=== PATIENT | male | born 1985 | race Caucasian/White ===

== ENCOUNTER 2016-05-12 11:38 | Emergency (ER) | payer OTHER ==
[2016-05-12 11:56] VITALS: BP 144/85; PULSE 73; TEMP 97.9; BMI 32.8
[2016-05-12] MEDS ORDERED: KETOROLAC TROMETHAMINE 60 MG/2 ML VIAL IM ONE (13:05)
[2016-05-12] MEDS ORDERED: CYCLOBENZAPRINE HCL 10 MG TABLET (FP) PO ONE (13:05)
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
[2016-05-12] MEDS ORDERED: KETOROLAC TROMETHAMINE 60 MG/2 ML VIAL ONE (13:10)
[2016-05-12] MEDS ORDERED: CYCLOBENZAPRINE HCL 10 MG TABLET (FP) ONE (13:10)
== END 2016-05-12 13:53 | disposition home or self-care (01) ==
LOC: JERFT 11:38
PROC: 3E0233Z Introduction of Anti-inflammatory into Muscle, Percutaneous Approach (ICD-10-PCS; principal; 2016-05-12)
DX: M54.5 Low back pain (principal); X50.0XXA Overexertion from strenuous movement or load, initial encounter; X00.8XXA Other exposure to uncontrolled fire in building or structure, initial encounter; Y93.89 Activity, other specified; Y92.63 Factory as the place of occurrence of the external cause; Y99.0 Civilian activity done for income or pay
CPT/HCPCS: 99281-25

== ENCOUNTER 2018-02-27 22:37 | Emergency (ER) | payer OTHER ==
[2018-02-27 22:52] VITALS: BP 108/71; PULSE 62; TEMP 98.3; BMI 29.9
[2018-02-27] MEDS ORDERED: KETOROLAC TROMETHAMINE 30 MG/1 ML VIAL IM ONE (23:15)
[2018-02-27] MEDS ORDERED: METHOCARBAMOL 500 MG TABLET PO ONE (23:15)
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
[2018-02-27] MEDS ORDERED: KETOROLAC TROMETHAMINE 30 MG/1 ML VIAL ONE (23:34)
[2018-02-27] MEDS ORDERED: METHOCARBAMOL 500 MG TABLET ONE (23:34)
--- NOTE | 2018-02-28 00:41 | PDOC ---
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 Pain does not feel like his sciatica and does not radiate down his legs. Denies numbness/tingling/weakness of extremities, bowel/bladder incontinence, fever, sob, cp, abd pain, n/v, urinary complaints. Did not take anything for pain yet. States pain level is currently 10. 02/28/18 01:46 Past History - Past Medical History Allergies/Adverse Reactions: Allergies Allergy/AdvReac Type Severity Reaction Status Date / Time No Known Allergies Allergy Verified 02/27/18 23:21 Home Medications: Ambulatory Orders Bupropion HCl [Wellbutrin Xl -] 150 mg PO DAILY 06/17/15 Citalopram Hydrobromide [Celexa -] 10 mg PO DAILY 06/17/15 Cyclobenzaprine HCl [Flexeril] 10 mg PO TID #20 tablet 06/17/15 Naproxen [Naprosyn -] 500 mg PO BID PRN #14 tablet 05/12/16 Methocarbamol [Robaxin -] 500 mg PO TID PRN #21 tablet 02/28/18 COPD: No - Immunization History Immunization Up to Date: Yes - Suicide/Smoking/Psychosocial Hx Smoking History: Never smoked Have you smoked in the past 12 months: No Hx Alcohol Use: No Drug/Substance Use Hx: No Substance Use Type: None Review of Systems - Review of Systems Comments:: See HPI 02/28/18 01:48 *Physical Exam - Vital Signs Last Vital Signs Temp Pulse Resp BP Pulse Ox 98.3 F 62 18 108/71 100 02/27/18 22:50 02/27/18 22:50 02/27/18 22:50 02/27/18 22:50 02/27/18 22:50 - Physical Exam General Appearance: No: Apparent Distress Neck: positive: Supple. negative: Rigid Respiratory/Chest: positive: Lungs Clear, Normal Breath Sounds. negative: Respiratory Distress Cardiovascular: positive: Regular Rhythm, Regular Rate, S1, S2 Gastrointestinal/Abdominal: positive: Normal Bowel Sounds, Soft. negative: Tender, Distended, Guarding, Rebound, Tenderness Musculoskeletal: positive: Muscle Spasm (Along R lumbar paravertebral muscles), Vertebral Tenderness. negative: CVA Tenderness Neurologic: positive: watch engine operator II-XII NML intact, Fully Oriented, Alert, Normal Mood/ Affect, Motor Strength 5/5. 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 Patient with no focal deficits and no concerns for cauda equina. Patient given Toradol and Robaxin with improvement in pain. New rx: Robaxin Stable for discharge. 02/28/18 01:49 *DC/Admit/Observation/Transfer Diagnosis at time of Disposition: Low back strain - Discharge Dispostion Disposition: HOME Condition at time of disposition: Improved Decision to Admit order: No - Prescriptions Prescriptions: Methocarbamol [Robaxin -] 500 mg PO TID PRN #21 tablet PRN Reason: Muscle Spasms - Referrals - Patient Instructions Printed Discharge Instructions: DI for Low Back Pain Additional Instructions: Thank you for choosing [facility]. It was a pleasure taking care of you. You may take Motrin 600 mg every 4 hours by mouth as needed for mild to moderate pain. Take Motrin with food. Take Robaxin as needed for muscle spasms Recommend physical therapy if needed, warm compresses as well Return to the Emergency Department if your symptoms worsen or persist, you have fever, shortness of breath, chest pain, severe abdominal pain, vomiting, weakness of extremities (arms and/or legs), unable to walk, unable to control bowel or bladder symptoms or other concerning symptoms. - Post Discharge Activity
== END 2018-02-28 00:44 | disposition home or self-care (01) ==
LOC: JER 22:37
PROC: 3E0233Z Introduction of Anti-inflammatory into Muscle, Percutaneous Approach (ICD-10-PCS; principal; 2018-02-27)
DX: S39.012A Strain of muscle, fascia and tendon of lower back, initial encounter (principal); M62.830 Muscle spasm of back; X50.9XXA Other and unspecified overexertion or strenuous movements or postures, initial encounter; X02.8XXA Other exposure to controlled fire in building or structure, initial encounter; Y93.89 Activity, other specified; Y92.89 Other specified places as the place of occurrence of the external cause; Y99.0 Civilian activity done for income or pay
CPT/HCPCS: 99283-25